=== PATIENT | male | born 1970 | race Caucasian/White ===

== ENCOUNTER 2017-08-03 10:55 | Inpatient (IN) | payer OTHER ==
[~2017-08-03] VITALS: Ht 180.3 cm; Wt 136.5 kg
[2017-08-04] MEDS ORDERED: SERTRALINE HCL100 MG PO (06:06)
[2017-08-04] MEDS ORDERED: REMERON30 MG PO (06:07)
[2017-08-04] MEDS ORDERED: PERCOCET 5-3251 EACH PO (06:07)
[2017-08-04] MEDS ORDERED: MELOXICAM15 MG PO (06:07)
[2017-08-04] MEDS ORDERED: DOCUSATE SODIU250 MG PO (06:07)
[2017-08-04] MEDS ORDERED: NORCO 5-325 TA1 EACH PO (06:08)
--- NOTE | 2017-08-04 10:00 | NUR ---
08/04/17 Mary Webb 0939 PT ARRIVED WITH ORAL AIRWAY IN PLACE, ON 10L VIA MASK. PT WILL HOLD HIS BREATH EVERY FORTH BREATH. 0942 AIRWAY REMOVED. PT ENCOUAGED TO DEEP BREATH AND CAUGH. 0946 O2 REMOVED, O2 SAT 100%. 0953 NC PLACED ON PT AT 2L. O2 SAT 90%. 0959 SPINAL LEVEL L-1. PT REPORTS TOES TINGLING.
--- NOTE | 2017-08-04 10:47 | NUR ---
PT TO FLOOR VIA BED WITH GUARDS IN ROOM. HAND SHACKLES ARE UNDONE CURRENTLY. PT CAN FEEL DOWN TO TOES AND IS ABLE TO WIGGLE TOES. VS STABLE. STARTED IVF AND TRANSCEMIC ACID.
--- NOTE | 2017-08-04 13:02 | NUR ---
PT RATES PAIN 7/10. STATES IT IS BURNING. ADMINISTERED PRN MEDS PER ORDER FROM PAULO CASTRO. PT AWAKE AND ALERT. DENIES NAUSEA AFTER LUNCH.
--- NOTE | 2017-08-04 13:17 | NUR ---
PATIENT RESTING IN BED. RN IN ROOM. GUARDS X2 IN ROOM WELL. NO OTHER NEEDS AT THIS TIME.
--- NOTE | 2017-08-04 15:20 | NUR ---
PT RESTING IN BED. STATES HE IS STARTING TO FEEL THE URGE TO PEE. WILL TRY USING THE URINAL SHORTLY.
--- NOTE | 2017-08-04 16:12 | NUR ---
STOOD PT AT SIDE OF BED WITH FWW AND TRIED TO PEE. UNABLE, BUT FEELS HE WILL BE ABLE TO SHORTLY WILL TRY AGAIN LATER. ADMINISTERED PRN PAIN MEDICATION FOR 9/10 PAIN.
--- NOTE | 2017-08-04 16:52 | NUR ---
MED REC COMPLETE
--- NOTE | 2017-08-04 17:23 | NUR ---
PATIENT BLADDER SCANNED FOR 524 ML. PATIENT IS SITTING AT BEDSIDE TO TRY AND VOID.
--- NOTE | 2017-08-04 18:27 | NUR ---
PT UNABLE TO URINATE TODAY, AWAITING DR WOODARD CALL BACK. BLADDER SCANNED FOR 500. ELECTRICAL CAD DESIGNER AUTHORIZED USE OF PO PAIN MEDICATION ORDERED BY DR WOODARD. RATES PAIN 7\10. WALKED IN ROOM WITH FASHION MERCHANDISER.
--- NOTE | 2017-08-04 18:31 | NUR ---
PATIENT RESTING IN BED WATCHING TV. GUARDS X2 IN ROOM. PATIENT STATES PAIN LEVEL IS A 7 OUT 10. RN NOTIFIED. FRESH ICE WATER. FRESH ICE BAGS X3. CALL LIGHT WITHIN REACH. NO OTHER NEEDS AT THIS TIME.
--- NOTE | 2017-08-04 19:00 | NUR ---
CALLED DR WOODARD'S OFFICE AND HIS CELL PHONE TWICE REGARDING PT'S UNABILITY TO URINATE. PT STATES HE IS UNCOMFORTABLE BUT NOT HORRIBLY SO.
--- NOTE | 2017-08-04 19:15 | NUR ---
RECEIVED REPORT FROM DAY SHIFT RN. PATIENT IS RESTING IN BED. NO NEEDS NOTED. CALL LIGHT IN REACH.
--- NOTE | 2017-08-04 20:20 | NUR ---
PATIENT ASSESMENT COMPLETED. PATIENT ASSISTED TO THE RESTROOM A SBA W/FWW. PATIENT TOLERATED AMBULATION WELL. PATIENT WAS FINALLY ABLE TO VOID. PATIENT IS NOW BACK IN BED RESTING. SCDS ARE IN PLACE. PATIENT HAS ICE APPLIED TO RIGHT KNEE. PATIENTS EVENING MEDICATIONS GIVEN PER ORDER. PATIENT RATES PAIN AT A 7/10. PATIENT GIVEN PRN OXY PER ORDER FOR PAIN. PATIENT GIVEN CRACKERS, FRESH WATER, AND APPLE JUICE PER REQUEST. PATIENT DENIES ANY FURTHER NEEDS AT THIS TIME. CALL LIGHT IN REACH. X2 GUARDS IN THE ROOM
--- NOTE | 2017-08-04 23:45 | NUR ---
PATIENT ASSISTED TO THE RESTROOM A SBA W/FWW. PATIENT TOLERATES AMBULATION WELL. PATIENT IS BACK IN BED RESTING. PATIENT RATES PAIN AT AN 8/10. PATIENT GIVEN PRN PAIN MEDICATION PER ORDER. PATIENT GIVEN FRESH ICE WATER, APPLE JUICE, AND CARAKERS PER REQUEST. PATIENT DENIES ANY FURTHER NEEDS. PATIENT HAS RESTRAINTS ON X3 EXTREMETIES PER [facility] POLICY, X2 GUARDS IN THE ROOM. CALL LIGHT IN REACH. PATIENT ON RA, PULSE OX IN PLACE, SCDS ON.
--- NOTE | 2017-08-05 02:17 | NUR ---
PATIENTS 0200 MEDICATIONS GIVEN PER ORDER. PATIENT RATES PAIN AT AN 8/10. PATEINT GIVEN PRN PAIN MEDICATION PER ORDER. PATIENT ASSISTED TO THE RESTROOM A SBA. PATIENT WAS ABLE TO VOID. PATIENT IS NOW SL PER ORDER. PATIENT IS BACK IN BED RESTING WITH SCDS IN PLACE. NO FURTHER NEEDS NOTED. CALL LIGHT IN REACH.
--- NOTE | 2017-08-05 05:30 | NUR ---
PATIENT RESTED ON AND OFF THROUGHOUT THE SHIFT. PATIENT IS ON A REG DIET AND TOLERATING WELL, NO COMPLAINTS OF NAUSEA. PATIET IS SL AND IV FLUSHES WELL. PATIENT HAS HEEL PROTECTORS IN PLACE. PATIENT RECEIVED PRN PAIN MEDICATION MULTIPLE TIMES. PATIENT HAS X3 RESTRAINTS PER [facility] POLICY AND X2 GUARDS IN THE ROOM. PATIENT IS AAOX3 AND USES CALL LIGHT APPROPRIATELY.
--- NOTE | 2017-08-05 05:51 | NUR ---
PATIENT GIVEN MORNING MEDICATION PER ORDER. PATIENT RATES PAIN AT AN 8/10. PATIENT GIVEN PRN PAIN MEDICATION PER ORDER. PATIENT DENIES ANY NAUSEA. PATIENT GIVEN FRESH ICE PACKS FOR RIGHT KNEE. PATIENTS DRESSING REMAINS C/D/I, NO DRAINAGE NOTED. PATIENTS ICE WATER REFILLED AND APPLE JUICE PER REQUEST. NO FURTHER NEEDS NOTED. CALL LIGHT IN REACH.
--- NOTE | 2017-08-05 08:58 | NUR ---
PT EATING BREAKFAST. OFFERED BED BATH WIPES TO WIPE SELF DOWN NEXT TIME HE IS UP PT REPORTS HE IS SWEATY. HAS BEEN UP TO RESTROOM FOR URINE MULTIPLE TIMES. PT RATES PAIN 7\10 GIVEN PRN PAIN MEDS. DRESSING CDI. 4PT RESTRAINTS ON PT. EDUCATED ON MIRALAX AND NARCOTICS.
--- NOTE | 2017-08-05 08:59 | NUR ---
REPORT RECIEVED FROM SAMANTHA BETHEA. PT AWAKE AND TALKING TO GUARDS, WATCHING TV. CONTINUALLY RATES PAIN 7\10.
--- NOTE | 2017-08-05 10:43 | OR ---
[facility] [address], [place] [address] Signed DATE OF OPERATION: 08/04/2017 SURGEON: Herberth Hernandes MD PREOPERATIVE DIAGNOSIS: End-stage osteoarthritis, right knee. POSTOPERATIVE DIAGNOSIS: End-stage osteoarthritis, right knee. PROCEDURE: Right total knee arthroplasty. ANESTHESIA: Spinal with sedation. SPECIMENS AND COMPLICATIONS: There were no specimens or complications. TOURNIQUET TIME: 90 minutes. IMPLANTS: An Attune size 8 PS right femur, a size 7 fixed bearing cemented tibial tray, a 10 mm PS poly, and a 41 mm all-poly patella. There were no intraoperative complications. WHAT WAS DONE: The patient was taken to the operating room. After anesthesia was induced and airway secured, the patient was placed in supine position and the right leg was positioned, prepped and draped in a routine sterile fashion. The leg was exsanguinated with an Esmarch bandage. The pneumatic tourniquet about the thigh was inflated to 300 mmHg. We then approached the knee through a standard anterior approach. Skin was divided sharply. Subcutaneous tissue was divided with electrocautery and the hemostasis was achieved with electrocautery. We created a small anteromedial flap and an anteromedial arthrotomy was performed. The patella was turned on edge, about 10.5 mm were trimmed off the posterior aspect of the patella and drill holes were made for 41 mm all-poly patellar button. We then snap-fit the trial poly patella into place and found we had reconstituted the 26 mm height of the patella. We then took the patellar trial off the Electronically Signed By: HERBERTH HERNANDES MD 08/05/17 1043 PATIENT NAME: DILAN LEMUS OPERATIVE REPORT DATE OF : 74 REPORT #: [id number] PHYSICIAN: HERBERTH HERNANDES MD PCP: CIRILO TORRE MD REPORT IS CONFIDENTIAL AND NOT TO BE RELEASED WITHOUT AUTHORIZATION [facility] [address], [place] [address] Signed patella into the lateral recess. Then using the Gazelle navigation system and following the protocol, we digitized the distal femur. Distal femoral resection was then accomplished in neutral varus valgus about 3 degrees of flexion and removing about 9 mm off the medial side. The cut was then made and the femoral wafers were removed. We then transitioned the Gazelle navigation system to the proximal tibia and again following the prompt on the protocol digitized the proximal tibia. Proximal tibia was then resected at the 5 mm noe in neutral varus/valgus and 3 degrees of posterior slope per the Attune surgical protocol. The tibial wafer was then removed along with remnants of the medial lateral meniscus, ACL, and PCL. We then placed the femoral sizing jig on the distal femur and it sized to a size 8. The size 8, 4-in-1 cutting block was placed on the distal femur in 3 degrees of external rotation. Anterior, posterior, and chamfer cuts were then made and the bony debris was removed. The notch cutting block was then placed on the distal femur and the notch was cut out. We then placed a lamina nuclear medicine tech in the joint both laterally and then medially. We removed all the remaining portions of the medial and lateral meniscus. At this point, it became apparent, we had a slight flexion gap imbalance, being a little tighter medially than laterally, which was consistent with his longstanding varus deformity. We therefore used the Mcintyre elevator and a 15-blade to gently pie crust a little portion of the MCL until our flexion gap was symmetric. We then sized the tibia to a size 7. We placed a size 7 tibial tray with a 7 mm poly on the tibia impacted the femoral trial and ranged the knee. We had excellent motion, but had just of varus valgus laxity both in flexion and extension. We therefore upsized the poly incrementally until we inserted a 10 mm poly. This gave us excellent flexion mid-range and extension balance and did not compromise our full extension. The knee was copiously irrigated and drained. The tibia was prepared using the standard approach and reamer. We then copiously irrigated the knee with jet lavage and meticulously dried it. We then selected the final components. A batch of cement was mixed and the tibia, femur, and patella were all cemented into place. An 8 mm size 8 poly was placed on the tibial tray for provisional reduction. The knee was held in full extension until all the cement had cured. Marginal cementophytes were then sought and removed. We then retrial the knee with a 10 poly and found we could still get full extension with excellent ligamentous balance. We therefore took out the size 10 trial poly, snap-fit a real size 10 poly to the tibial tray. The knee was copiously irrigated one last time and then closed in a standard fashion. A sterile dressing was applied. The patient was awakened to recovery room where he arrived in stable condition. Counts were correct and antibiotic protocols were followed. Herberth Hernandes MD Electronically Signed By: HERBERTH HERNANDES MD 08/05/17 1043 PATIENT NAME: DILAN LEMUS OPERATIVE REPORT DATE OF : 74 REPORT #: [id number] PHYSICIAN: HERBERTH HERNANDES MD PCP: CIRILO TORRE MD REPORT IS CONFIDENTIAL AND NOT TO BE RELEASED WITHOUT AUTHORIZATION [address], [place] [address] Signed [facility] /[id number] Copies: ~ Electronically Signed By: HERBERTH HERNANDES MD 08/05/17 1043 PATIENT NAME: DILAN LEMUS OPERATIVE REPORT DATE OF : 74 REPORT #: [id number] PHYSICIAN: HERBERTH HERNANDES MD PCP: CIRILO TORRE MD REPORT IS CONFIDENTIAL AND NOT TO BE RELEASED WITHOUT AUTHORIZATION
--- NOTE | 2017-08-05 10:47 | NUR ---
PT GIVEN BED BATH WIPES AND SHOWER GAPS TO WIPE DOWN NEXT TIME HE IS IN THE RESTROOM. GIVEN PT PRN DILAUIDID.
--- NOTE | 2017-08-05 11:13 | NUR ---
DR WOODARD IN TO PT. SENDING BACK TO FACILITY THIS MORNING. DR MARTINEZ PT RATES PAIN HIGH. PT WORKING WITH PHYS. THER.
[2017-08-05] MEDS ORDERED: DILAUDID4 MG PO (12:11)
[2017-08-05] MEDS ORDERED: OXYCODONE HCL10 MG PO (12:12)
[2017-08-05] MEDS ORDERED: TYLENOL325 MG PO (12:14)
[2017-08-05] MEDS ORDERED: XARELTO10 MG PO (12:15)
--- NOTE | 2017-08-05 12:44 | NUR ---
PT DISCHARGED BACK TO [facility]. GIVEN PAIN MEDICAITON PRIOR TO DC. EDUCATION GIVEN ON S\S OF INFECTION AND DOING PHYS. THER. PT VERBALIZED UNDERSTANDING. SITE LOOKS CLEAN AND WELL APPROX. WITH TAPE INTACT. VS STABLE. WILL CALL REPORT TO [facility]. IV REMOVED EARLIER WNL.
== END 2017-08-05 12:37 | disposition home or self-care (01) | DRG 470 ==
LOC: DSVR 08-04 05:55 → MS 08-04 06:45
PROVIDERS: ADMIT Orthopaedic Surgery
PROC: 0SRC0J9 Replacement of Right Knee Joint with Synthetic Substitute, Cemented, Open Approach (ICD-10-PCS; principal; 2017-08-04 06:45)
DX: M17.11 Unilateral primary osteoarthritis, right knee (principal)
CPT/HCPCS: 01402; 36415; 51798; 73560; 80048; 85025; 97110; 97116; 97161; C1713; C1776; G8978; G8979; J0690; J1100; J1170; J1885; J2250; J2274; J2405; J2704; J2765; J3010; J7120

== ENCOUNTER 2017-08-08 00:55 | Emergency (ER) | payer OTHER ==
[~2017-08-08] VITALS: Ht 180.3 cm; Wt 136.5 kg
[~2017-08-08 00:55] MED LIST: DILAUDID4 MG PO; DOCUSATE SODIU250 MG PO; MELOXICAM15 MG PO; NORCO 5-325 TA1 EACH PO; OXYCODONE HCL10 MG PO; PERCOCET 5-3251 EACH PO; REMERON30 MG PO; SERTRALINE HCL100 MG PO; TYLENOL325 MG PO; XARELTO10 MG PO
[2017-08-08] MEDS ORDERED: TYLENOL WITH C1 EACH PO (01:14)
[2017-08-08] MEDS ORDERED: ZOFRAN ODT4 MG PO (01:17)
[2017-08-08] MEDS ORDERED: LOVENOX30 MG/0.3 (01:18)
[2017-08-08] MEDS ORDERED: COUMADIN5 MG PO (01:20)
[2017-08-08] MEDS ORDERED: CEPHALEXIN500 MG PO (02:40)
== END 2017-08-08 02:58 | disposition home or self-care (01) ==
LOC: ED 00:55
DX: R50.82 Postprocedural fever (principal); Z79.01 Long term (current) use of anticoagulants; Z79.899 Other long term (current) drug therapy; Z96.651 Presence of right artificial knee joint
CPT/HCPCS: 71045; 80053; 81001; 83605; 85025; 87040; 96374; 96375; 99283; J0690; J1170; J2405; J7030

== ENCOUNTER 2017-08-21 03:02 | Emergency (ER) | payer OTHER ==
[~2017-08-21] VITALS: Ht 180.3 cm; Wt 136.5 kg
[~2017-08-21 03:02] MED LIST changes: +CEPHALEXIN500 MG PO; +COUMADIN5 MG PO; +LOVENOX30 MG/0.3; +TYLENOL WITH C1 EACH PO; +ZOFRAN ODT4 MG PO
[2017-08-21] MEDS ORDERED: NORCO 5-325 TA1 EACH PO (03:19)
== END 2017-08-21 04:34 | disposition home or self-care (01) ==
LOC: ED 03:02
DX: G89.18 Other acute postprocedural pain (principal); M79.661 Pain in right lower leg; F41.9 Anxiety disorder, unspecified; Z87.891 Personal history of nicotine dependence; Z96.651 Presence of right artificial knee joint
CPT/HCPCS: 93971; 99284

== ENCOUNTER → 2019-11-02 | Emergency (ER) | payer SELFPAY ==
[~2019-11-02] VITALS: Ht 180.3 cm; Wt 127.0 kg
[~2019-11-02] MED LIST changes: +NORCO 7.5-3251 EACH PO
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
== END ==
LOC: ED 15:00
DX: S83.91XA Sprain of unspecified site of right knee, initial encounter (principal); F41.9 Anxiety disorder, unspecified; Z87.891 Personal history of nicotine dependence; X50.1XXA Overexertion from prolonged static or awkward postures, initial encounter
CPT/HCPCS: 73560; 99283-25; A9270

== ENCOUNTER 2020-11-04 22:35 | Emergency (ER) | payer OTHER ==
[~2020-11-04] VITALS: Ht 180.3 cm; Wt 149.7 kg
--- OUTSIDE RECORDS SUMMARY | 2020-11-04 22:38 | XMS ---
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 ED/UCC VISIT TRACKING (12 MO.) 11/04/2020 22:36 [facility] [place] TYPE: Emergency COMPLAINT: - SWOLLEN FEET, SHORTNESS OF BREATH 10/24/2020 09:12 [facility] [place] TYPE: Emergency DIAGNOSES: - bilateral leg pain - Cellulitis of left lower limb - Localized edema 10/11/2020 12:43 [facility] [place] TYPE: Emergency DIAGNOSES: - LEFT LEG PAIN - Localized edema - Pain in left leg - Localized enlarged lymph nodes - Cellulitis of unspecified part of limb 10/04/2020 23:08 [facility] [place] TYPE: Emergency DIAGNOSES: - Dyspnea, unspecified - SHORTNESS OF BREATH - Localized edema [facility]08[facility]2020 05:[facility] DIAGNOSES: - ABD PAIN - Acute bronchitis due to other specified organisms 08/23/2020 08:26 [facility] [place] TYPE: Emergency DIAGNOSES: - Right upper quadrant pain - ABDOMINAL PAIN INPATIENT VISIT TRACKING (12 MO.) No inpatient visits to display in this time frame [email or web address]
[2020-11-04] MEDS ORDERED: FUROSEMIDE20 MG PO (22:52)
[2020-11-05] MEDS ORDERED: LASIX20 MG PO (00:08)
[2020-11-05] MEDS ORDERED: POTASSIUM CHLO20 ME1 PO (00:08)
--- NOTE | 2020-11-05 12:41 | EKG ---
[facility] [address] [facility] [place] [address] Signed Sinus tachycardia Rightward axis Borderline ECG No previous ECGs available Confirmed by TIFF ZALDIVAR DO ([id number]) on 11/05/2020 12:41:03 PM Electronically Signed By: TIFF ZALDIVAR DO 11/05/20 1241 PATIENT NAME: DILAN LEMUS CAITLYN Electrocardiogram DATE OF : 74 PHYSICIAN: TIFF ZALDIVAR DO REPORT #: [id number] REPORT IS CONFIDENTIAL AND NOT TO BE RELEASED WITHOUT AUTHORIZATION
== END 2020-11-05 00:56 | disposition home or self-care (01) ==
LOC: ED 22:35
DX: J44.1 Chronic obstructive pulmonary disease with (acute) exacerbation (principal); I50.9 Heart failure, unspecified; F17.200 Nicotine dependence, unspecified, uncomplicated; Z79.899 Other long term (current) drug therapy
CPT/HCPCS: 71046; 80053; 83880; 84484; 85025; 93005; 93010; 99285-25